=== PATIENT | male | born 1950 | race Caucasian/White ===

== ENCOUNTER 2019-05-28 15:28 | Outpatient (CLI) | payer OTHER ==
[2016-02-27 10:52] VITALS: BP 139/75
--- NOTE | 2019-06-02 14:37 | OP Clinic Progress Note ---
DATE OF VISIT: 05/28/2019 SUBJECTIVE: Alejandro Herrera is a 68-year-old male presenting to clinic today for followup of a skin ulcer to the right great toe and the distal tip and followup of a previous skin ulcer on the fourth toe which we did not inspect today. The patient states that last Saturday the right great toenail ripped off when he was removing his socks. He would like me to peek at that as well today. The patient does not admit to any fevers, chills, nausea, vomiting, shortness of breath or chest pain. OBJECTIVE: Vitals: Temperature 98.5 degrees Fahrenheit, heart rate 71, respiration rate 18, blood pressure 140/85. O2 saturation is 95% on room air. Vascular: 2+ DP and 1+ PT pulses, right foot. Hair growth is noticed of the toes, right foot. Capillary refill time is less than 3 seconds to the toes of the right foot. There is no edema noted, right foot. Dermatologic: There is no erythema noted on the right great toe anywhere. There is a small amount of hyperkeratosis which is debrided on the right great toe to reveal a very small wound which is debrided today as well measuring approximately 0.15 x 0.1 x 0.05 cm deep. There is no malodor or drainage or purulence or erythema noted at this site. Right great toenail with evidence of auto-avulsion with a small keratin-looking area on the nail bed. No erythema, no drainage, looks stable. Not painful to the patient currently. Musculoskeletal: There is no pain with debridement on the right great toe. Neurologic: Light touch sensation is absent to the toes, right foot. 5.07 [place] monofilament test previously was also absent to bilateral feet plantarly and dorsally. ASSESSMENT AND PLAN: 1. Right hallux ulcer. We will need to further follow up on the left fourth toe pinpoint ulcer that was present previously that we did not look at today. We will follow up on that at the next visit in two weeks. The patient did not bring it up today. PROCEDURE #1: Sharp debridement of right hallux ulcer distal tip, hyperkeratosis, and granular base to the subcutaneous tissue less than 20 sq cm with a #15 blade. This was dressed with Triple Antibiotic Ointment and a Band- Aid today. The area where the nail was ripped off still had a keratin type layer sitting on the nail bed and this will need to essentially allow a new nail to grow out before we could consider doing removal permanently in the future. There are no signs of infection or concern about where the nail was removed on its own. We will leave it alone at this time and there is no need for dressings on it at this time as it is dry and looks fine. Return to clinic in two weeks for followup of the right great toe ulcer and also to please follow up on the left fourth toe as we did not look at that today even though it was a pinpoint ulcer last time he came. The patient has no further questions or concerns and we will see him in two weeks. He is appreciative of the visit today. Marcin Hand.P.M. (Dictated/not signed) /[employer] [id number] /mab MTDD
== END 2019-05-28 15:58 ==
LOC: POD 15:28
PROVIDERS: ATTEND Podiatrist Foot & Ankle Surgery
DX: L97.519 Non-pressure chronic ulcer of other part of right foot with unspecified severity (principal)
CPT/HCPCS: 11042; A4554

== ENCOUNTER 2019-09-17 13:29 | Outpatient (CLI) | payer OTHER ==
[2016-02-27 10:52] VITALS: BP 139/75
--- NOTE | 2019-09-21 09:53 | Diagnostic Imaging Report ---
PATIENT MR#: [id number] PATIENT PATIENT NAME: AGGIE STAPLES DATE OF : 1950 REFERRING PHYSICIAN: Melita Henning EXAM DATE: 09/17/2019 ACCESSION NUMBER: [id number] EXAM DESCRIPTION: DEXA DUAL ENERGY X-RAY ABSORPTIOMETRY (DXA) A DXA scan was performed on September 17, 2019 using a Re-Compose densitometer. IMPRESSION: Based on BMD diagnosis is consistent with normal (based on WHO criteria). Fracture risk is low. Follo w-up exam recommended August 2021. INDICATION: Postmenopausal Technical Quality: Diagnostic RESULTS: Lumbar Spine The BMD measured in the L1-L4 region is 1.262 g/cm2 T-score 0.3 Femoral Neck The BMD measured at the bilateral femoral neck is 1.09 g/cm2 T-score -0.1 Read by: Dr. Francisco Jerome Transcribed by: Francisco Jerome Transcribed Date: 09/21/2019 9:52:42 AM Electronically signed by: Dr. Francisco Jerome Date signed: 09/21/2019 9:52:42 AM
== END 2019-09-17 13:39 ==
LOC: RAD 13:29
PROVIDERS: ATTEND Nurse Practitioner Family
DX: M85.80 Other specified disorders of bone density and structure, unspecified site (principal)
CPT/HCPCS: 77080

== ENCOUNTER 2019-10-09 13:37 | Outpatient (CLI) | payer OTHER ==
[2016-02-27 10:52] VITALS: BP 139/75
== END 2019-10-09 13:42 ==
LOC: LAB 13:37
PROVIDERS: ATTEND Nurse Practitioner
DX: E53.8 Deficiency of other specified B group vitamins (principal); R53.83 Other fatigue; R20.0 Anesthesia of skin; R20.2 Paresthesia of skin
CPT/HCPCS: 36415; 82306; 82607; 83921

== ENCOUNTER 2019-10-12 14:28 | Outpatient (CLI) | payer OTHER ==
[2016-02-27 10:52] VITALS: BP 139/75
--- NOTE | 2019-10-19 12:33 | OP Clinic Progress Note ---
DATE OF VISIT: 10/12/2019 SUBJECTIVE: Alejandro Herrera is a 68-year-old male presenting to clinic today for a painful left great toenail all around. The patient states that he hurt it recently and the inside and outside borders are very sore as well as with direct pressure on top of the left great toenail. The patient would like to have the toenail removed at this time if possible and allow a new nail to grow back which I am okay with. He has not had any sort of drainage or signs of infection noted. I believe he did admit to being diabetic. The patient does not admit to any fevers, chills, nausea, vomiting, shortness of breath or chest pain. OBJECTIVE: Vitals: Temperature 98.3 degrees Fahrenheit, heart rate 66, respiration rate 16, blood pressure 140/80. O2 saturation is 95% on room air. Vascular: 2+ DP and PT pulses, left foot. Capillary refill time is less than 3 seconds to the toes of the left foot. There is plenty of hair growth noted on the toes, left foot. There is no significant edema in the left foot. Dermatologic: There is minor if any real great irritation noted on the left great toe borders. Overall it looks pretty normal except for that it is painful to the patient. The left great toenail is a little bit loose and with subungual debris. There is thickening and dystrophy of the nail as well of the left great toe. There are no other skin abnormalities or open lesions noted, left foot. Musculoskeletal: There is pain on palpation of medial lateral and with direct pressure over the left great toenail. There is no crepitus or fluctuance of any kind around the edge of the nail. There is no other gross abnormalities noted, left foot. It should be noted that the left great toenail is loose, about 25%, I would say. Neurologic: Light touch sensation is intact to the toes, left foot. ASSESSMENT AND PLAN: 1. Onycholysis of the left great toenail. PROCEDURE #1: Total nail avulsion of the left great toenail was performed today. The risks and benefits were discussed with the patient that include but are not limited to bleeding and infection, and the patient agreed to just have the toenail removed at this time temporarily and to allow a new nail to grow in to see if it grows in any better. He knows that it may grow in and be loose as well now that it has been loosened and the patient would still like to do a temporary procedure today. Consent was obtained verbally and by written consent and was placed in the chart. Details of procedure: An alcohol swab was utilized to cleanse the base of the left great toe and an injection of 7 mL of a 1:1 mix of 2% lidocaine plain and 0.5% Marcaine plain were injected into the base of the left great toe. The site was cleaned with a Betadine prep. Confirming anesthesia to the left great toe, the toenail was then released from its dorsal and plantar attachments and the nail was avulsed in its entirety. Any underlying tissue that was remaining was removed, leaving the nail bed intact. There was confirmation that the entire nail was removed and the site was rinsed with a copious amount of normal saline and bleeding was controlled with pressure, which was mild. Dressings were then applied consisting of triple antibiotic ointment, Adaptic, 4x4 gauze, 2-inch Delores and 1-inch Coban beginning on the great toe and ending on the distal forefoot to help hold it on the toe. The patient tolerated the procedure very well. Again, hemostasis was obtained with pressure. He was encouraged to get home and elevate it. He was given written and verbal instructions regarding the care of the toe going forward. The patient understands this plan and knows that he is to continue doing daily antibiotic and a Band-Aid over the left great toe until about a week or so from now and then to switch to just a Band-Aid somewhere at about the week and a half awais. I will see him in 2-1/2 weeks for follow-up. Return to the clinic in 2-1/2 weeks to confirm this is healing well. The patient had no further questions or concerns and we will see him then. ADDENDUM: The patient most recently was seen in May and never followed up in 2 weeks like he was supposed to for a right great toe ulcer. He did not take off his shoe or mention anything of any kind of concern on that side at this time, and therefore, it was not looked at today. He had a very pinpoint ulcer on the left fourth toe which I did not notice any issues with today when looking at the left foot. We will see him in 2-1/2 weeks and we will consider looking at the right great toe ulcer from previous as well assuming it is completely healed at this time. Ismael Alexandre D.P.M. Job#: [id number] & [id number] MTDD
== END 2019-10-12 14:33 ==
LOC: POD 14:28
PROVIDERS: ATTEND Podiatrist Foot & Ankle Surgery
DX: L60.1 Onycholysis (principal)
CPT/HCPCS: 11730; 99213; A4554; J2001; J3490

== ENCOUNTER 2019-10-29 08:31 | Outpatient (CLI) | payer OTHER ==
[2016-02-27 10:52] VITALS: BP 139/75
--- NOTE | 2019-10-30 17:20 | OP Clinic Progress Note ---
DATE OF VISIT: 10/29/2019 SUBJECTIVE: Alejandro is a 68-year-old male presenting to clinic today for followup of a left great toenail total nail avulsion performed on 10/12/19. The patient has been following instructions appropriately and states that he does not have any pain with ambulation at this time. He is feeling great and happy with his care and is looking forward to continuing to share and spread the word about sending people my direction. Upon questioning of his high blood pressure he states that he is taking his blood pressure frequently at work and that his blood pressure yesterday for example was 145/75. He states that he will speak with Maryam Henning and call her today about how his blood pressure is quite high. He does not admit to any fevers, chills, nausea, vomiting, shortness of breath or chest pain and states that he feels great today. OBJECTIVE: Vitals: Temperature 96.4, heart rate 59, respiration rate 16, blood pressure 179/100 with a repeat blood pressure taken of 177/93. O2 saturation is 98% on room air. Vascular: 2+ DP and PT pulses, left foot. Capillary refill time is less than 3 seconds to the toes of the left foot. There is plenty of hair growth noted on the toes, left foot. There is no edema noted, left foot. Dermatologic: There is a dry toenail bed of the left great toe area with very mild callusing/eschar noted. This is healed well and there is no signs of erythema or drainage of any kind, purulence or malodor or warmth noted. There are no other signs of infection noted. The right foot was not visualized today. There must not be any issues on the right from previous as he did not have me look at it at all. Musculoskeletal: There is very mild pain on palpation on the left great toenail bed area. There is no crepitus or fluctuance of any kind or any other gross abnormalities, noted left foot. Neurologic: Light touch sensation is intact to the toes, left foot. ASSESSMENT AND PLAN: 1. Postprocedure care (status post left great toenail total nail avulsion, 10/12/19) healed. 2. Onycholysis healed (see above). There was no procedure performed today. There are no other concerns or issues and the patient was told that he does not need to use any more Band-Aids at this time. Return to the clinic as needed or for any other care that he needs going forward. The patient has no further questions or concerns and we will see him in the future as needed. Ismael Alexandre D.P.M. Job #[id number] MTDD
== END 2019-10-29 09:01 ==
LOC: POD 08:31
PROVIDERS: ATTEND Podiatrist Foot & Ankle Surgery
DX: Z48.817 Encounter for surgical aftercare following surgery on the skin and subcutaneous tissue (principal)
CPT/HCPCS: 99212